=== PATIENT | female | born 1940 | race Caucasian/White ===

== ENCOUNTER 2018-10-16 08:13 | Emergency (ER) | payer OTHER ==
[~2018-10-16] VITALS: Ht 165.1 cm; Wt 62.6 kg
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
--- NOTE | 2018-10-16 08:32 | NUR ---
ARCG[employer] DEVELOPER AT BEDSIDE.
[2018-10-16 08:43] LABS: BASOPHILS # (AUTO) 0.1 K/uL (0.0-8.0); BASOPHILS % (AUTO) 0.7 % (0.0-2.0); EOSINOPHILS # (AUTO) 0.2 K/uL (0.0-0.7); HEMATOCRIT 36.9 % (31.2-41.9); HEMOGLOBIN 11.9 g/dL (10.9-14.3); LYMPHOCYTES # (AUTO) 2.9 K/uL (20.0-40.0); LYMPHOCYTES % (AUTO) 36.5 % (20.5-51.5); MEAN CORPUSCULAR HEMOGLOBIN 27.9 uug (24.7-32.8); MEAN CORPUSCULAR HGB CONC 32 g/dL (32.3-35.6); MEAN CORPUSCULAR VOLUME 86.5 fL (75.5-95.3); MONOCYTES # (AUTO) 0.9 K/uL (2.0-10.0); MONOCYTES % (AUTO) 10.6 % (0.0-11.0); NEUTROPHILS % (AUTO) 50.2 % (38.5-71.5); PLATELET COUNT (AUTO) 210 K/uL (179-408); RED BLOOD CELL COUNT(AUTO) 4.27 MIL/uL (3.63-4.92)
[2018-10-16 08:46] LABS: CARBON DIOXIDE 25 mmol/L (21-32); CHLORIDE 103 mmol/L (98-107); CREATININE 0.8 mg/dL (0.6-1.3); GLUCOSE 140 mg/dL (74-106); POTASSIUM 3.9 mmol/L (3.5-5.1); UREA NITROGEN, BLOOD 19 mg/dL (7-18)
--- NOTE | 2018-10-16 08:47 | NUR ---
ROBBY PELAEZ AT BEDSIDE FOR PT UPDATE.
--- NOTE | 2018-10-16 08:50 | NUR ---
INITIAL CALL TO [facility], SPOKE W/ LESLEY.
--- NOTE | 2018-10-16 09:36 | NUR ---
ROBBY PELAEZ SPEAKING W/ ADRIÁN PELAEZ ON THE PHONE.
--- NOTE | 2018-10-16 10:50 | NUR ---
[facility] CALL FOR REPORT [phone] ACCEPTING PHYSICIAN, DR. SELINA KWAN PT NPO. S TRANSPORT, PRN, ETA [phone].
--- NOTE | 2018-10-16 11:24 | NUR ---
TRANSFER REPORT GIVEN TO SHANNAN REDMAN, AT [facility].
--- NOTE | 2018-10-16 11:25 | NUR ---
Patient Tranfers to outside Facility Physician: DR. MARKS Location: [facility]
--- NOTE | 2018-10-16 11:34 | NUR ---
PT WILL BE TRANSFERRED TO [facility] ER VIA PRN [id number], PRIVATE AMBULANCE.
== END 2018-10-16 11:50 | disposition short-term general hospital (02) ==
LOC: ER 08:13
DX: S72.142A Displaced intertrochanteric fracture of left femur, initial encounter for closed fracture (principal); W22.8XXA Striking against or struck by other objects, initial encounter; Y93.89 Activity, other specified; Y92.89 Other specified places as the place of occurrence of the external cause; Y99.8 Other external cause status
CPT/HCPCS: 36415; 71045; 73502; 85025; 85730; 86850; 86900; 86901; A4663